=== PATIENT | male | born 1985 | race African-American/Black ===

== ENCOUNTER 2016-07-30 02:17 | Observation (INO) | payer OTHER ==
[~2016-07-30] VITALS: Ht 190.5 cm; Wt 155.0 kg
[~2016-07-30 02:17] MED LIST: CEPH500C3 PO; IBUP800T23 PO
[2016-07-30 02:20] VITALS: BP 169/102; PULSE 115; RESP 18; TEMP 98.3; O2SAT 96
[2016-07-30 02:28] VITALS: BP 141/81; PULSE 105; RESP 18; TEMP 99; O2SAT 97
[2016-07-30] MEDS ORDERED: ANTIDEPRESSANT (02:31)
[2016-07-30 02:43] LABS: BASOPHIL # 0.1 TH/MM3 (0-0.2); BASOPHIL % 0.8 % (0.0-2.0); EOSINOPHIL # 0.1 TH/MM3 (0-0.4); EOSINOPHIL % 0.7 % (0.0-4.0); HEMATOCRIT 40.9 % (39.0-51.0); HEMO FLAGS DIFF FINAL; LYMPH % 27.2 % (9.0-44.0); LYMPHOCYTE # 2.2 TH/MM3 (1.0-4.8); MEAN CELL VOLUME 82.4 FL (80.0-100.0); MEAN CORPUSCULAR HEMOGLOBIN 27.1 PG (27.0-34.0); MEAN CORPUSCULAR HGB CONC 32.9 % (32.0-36.0); MONO % 8.6 % (0.0-8.0); NEUT % 62.7 % (16.0-70.0); PLATELET COUNT 272 TH/MM3 (150-450); RED BLOOD COUNT 4.96 MIL/MM3 (4.50-5.90); RED CELL DISTRIBUTION WIDTH 14.2 % (11.6-17.2)
--- NOTE | 2016-07-30 02:49 | PD ---
HPI Chief Complaint: Chest Pain Time Seen by Provider: 02:46 Travel History International Travel<30 days: No Contact w/Intl Traveler<30days: No Traveled to known affect area: No History of Present Illness HPI 30-year-old male with history of cocaine use, presents to the ER today because of chest pain that started several hours ago on its own. Currently the chest pain is 6 out of 10 with no nausea, shortness of breath, or other symptoms. He states he has been using cocaine all afternoon. Modifying Factors: None Associated Signs & Symptoms: Chest pain Risk Factors: Cocaine use PFSH Past Medical History Anxiety: Yes Depression: Yes Tetanus Vaccination: < 5 Years Influenza Vaccination: No Past Surgical History Other Surgery: Yes (KNEE SURGERY) Social History Alcohol Use: Yes (OCC) Tobacco Use: Yes Substance Use: Yes (COCAINE, MARIJUANA) Allergies-Medications (Allergen,Severity, Reaction): Coded Allergies: No Known Allergies (Unverified , 07/30/16) Reported Meds & Prescriptions Reported Meds & Active Scripts Active Reported [Antidepressant] Review of Systems Except as stated in HPI: all other systems reviewed are Neg Physical Exam Narrative GENERAL: Well-nourished, well-developed young -[place] male patient in no acute distress. SKIN: Warm and dry. HEAD: Normocephalic. EYES: No scleral icterus. No injection or drainage. NECK: Supple, trachea midline. CARDIOVASCULAR: Regular rate and rhythm without murmurs, gallops, or rubs. RESPIRATORY: Breath sounds equal bilaterally. No accessory muscle use. GASTROINTESTINAL: Abdomen soft, non-tender, nondistended. MUSCULOSKELETAL: No cyanosis, or edema. BACK: Nontender without obvious deformity. No CVA tenderness. Data Data Last Documented VS Vital Signs Date Time Temp Pulse Resp B/P Pulse Ox O2 Delivery O2 Flow Rate FiO2 07/30/16 02:28 99.0 105 18 141/81 97 07/30/16 02:20 Room Air Orders Complete Blood Count With Diff (07/30/16 02:30) Comprehensive Metabolic Panel (07/30/16 02:30) Troponin I (07/30/16 02:30) Ckmb (Isoenzyme) Profile (07/30/16 02:30) Drug Screen, Random Urine (07/30/16 02:30) Electrocardiogram (07/30/16 ) Chest, Single Ap (07/30/16 02:47) Aspirin (Aspirin) (07/30/16 03:00) Nitroglycerin 2% Oint (Nitroglycerin 2% (07/30/16 03:00) CKMB (07/30/16 02:25) CKMB% (07/30/16 02:25) Labs Laboratory Tests Test 07/30/16 02:25 White Blood Count 8.0 TH/MM3 Red Blood Count 4.96 MIL/MM3 Hemoglobin 13.4 GM/DL Hematocrit 40.9 % Mean Corpuscular Volume 82.4 FL Mean Corpuscular Hemoglobin 27.1 PG Mean Corpuscular Hemoglobin 32.9 % Concent Red Cell Distribution Width 14.2 % Platelet Count 272 TH/MM3 Mean Platelet Volume 8.8 FL Neutrophils (%) (Auto) 62.7 % Lymphocytes (%) (Auto) 27.2 % Monocytes (%) (Auto) 8.6 % Eosinophils (%) (Auto) 0.7 % Basophils (%) (Auto) 0.8 % Neutrophils # (Auto) 5.0 TH/MM3 Lymphocytes # (Auto) 2.2 TH/MM3 Monocytes # (Auto) 0.7 TH/MM3 Eosinophils # (Auto) 0.1 TH/MM3 Basophils # (Auto) 0.1 TH/MM3 CBC Comment DIFF FINAL Differential Comment Sodium Level 139 MEQ/L Potassium Level 3.9 MEQ/L Chloride Level 103 MEQ/L Carbon Dioxide Level 26.6 MEQ/L Anion Gap 9 MEQ/L Blood Urea Nitrogen 7 MG/DL Creatinine 1.16 MG/DL Estimat Glomerular Filtration 91 ML/MIN Rate Random Glucose 95 MG/DL Calcium Level 8.6 MG/DL Total Bilirubin 0.3 MG/DL Aspartate Amino Transf 23 U/L (AST/SGOT) Alanine Aminotransferase 22 U/L (ALT/SGPT) Alkaline Phosphatase 54 U/L Total Creatine Kinase 340 U/L Troponin I LESS THAN 0.02 NG/ML Total Protein 7.9 GM/DL Albumin 4.0 GM/DL MDM Medical Decision Making Medical Screen Exam Complete: Yes Emergency Medical Condition: Yes Medical Record Reviewed: Yes Interpretation(s) EKG shows sinus tachycardia rate of 100 bpm, no ST elevation or depression, and no arrhythmias. No significant T-wave inversions. Laboratory Tests Test 07/30/16 02:25 Monocytes (%) (Auto) 8.6 % (0.0-8.0) Total Creatine Kinase 340 U/L (39-308) Troponin I LESS THAN 0.02 NG/ML (0.02-0.05) Differential Diagnosis Chest pain, cocaine usecocaine related chest pain versus dysrhythmias versus ACS Narrative Course Lab work and chest x-ray did not indicate any signs of acute processes. EKG did not show significant ST changes. Patient was given aspirin and nitroglycerin in the ER with some improvement symptoms. At this point, my plan would be to admit the patient for further evaluation a chest pain. Diagnosis Primary Impression: CHEST PAIN, UNSPECIFIED Admitting Information Admitting Physician Requests: Admit Marquis Vásquez MD Jul 30, 2016 02:49
[2016-07-30 03:00] VITALS: BP 133/74; PULSE 84; RESP 16; O2SAT 95
[2016-07-30] MEDS ORDERED: NITROGLYCERIN 2% OINT 1 GM PACKET TOPICAL ONE (03:00)
[2016-07-30] MEDS ORDERED: ASPIRIN 325 MG TAB PO ONE (03:00)
[2016-07-30 03:17] LABS: ALKALINE PHOSPHATASE 54 U/L (45-117); ALT (GPT) 22 U/L (12-78); ANION GAP 9 MEQ/L (5-15); AST (GOT) 23 U/L (15-37); BICARBONATE 26.6 MEQ/L (21.0-32.0); BLOOD UREA NITROGEN 7 MG/DL (7-18); CHLORIDE 103 MEQ/L (98-107); CREATINE KINASE 340 U/L (39-308); GLOMERULAR FILTRATION RATE 91 ML/MIN (>89); POTASSIUM 3.9 MEQ/L (3.5-5.1); SODIUM (NA) 139 MEQ/L (136-145); TOTAL BILIRUBIN ADULT 0.3 MG/DL (0.2-1.0)
[2016-07-30 03:29] LABS: CKMB 1.5 NG/ML (0.5-3.6)
[2016-07-30] MEDS ORDERED: SODIUM CHLORIDE 0.9% FLUSH 5 ML FLUSH IVF PRN (03:30)
[2016-07-30 04:00] VITALS: BP 128/65; PULSE 90; O2SAT 97
--- NOTE | 2016-07-30 04:52 | RADRPT ---
EXAM DATE/TIME: 07/30/2016 02:58 [facility] COMPARISON: No previous studies available for comparison. INDICATIONS : Chest pain. MEDICAL HISTORY : None. SURGICAL HISTORY : None. ENCOUNTER: Initial ACUITY: 1 day PAIN SCORE: 6/10 LOCATION: Bilateral chest FINDINGS: A single view of the chest demonstrates the lungs to be symmetrically aerated without evidence of mas s, infiltrate or effusion. The cardiomediastinal contours are unremarkable. Osseous structures are intact. CONCLUSION: No acute disease. Chinedu Green MD on July 30, 2016 at 4:50 Board Certified Radiologist. This report was verified electronically.
[2016-07-30] MEDS ORDERED: SODIUM CHLORIDE 0.9% FLUSH 5 ML FLUSH IVF SCH (09:00)
--- NOTE | 2016-07-30 19:24 | EKG ---
Date Performed: 07/30/2016 Time Performed: 02:28:09 PTAGE: 30 years EKG: SINUS TACHYCARDIA ABNORMAL RHYTHM ECG NO PREVIOUS TRACING DOCTOR: Danie Bhat Interpretating Date/Time 07/30/2016 19:20:23
== END 2016-07-30 04:59 | disposition left against medical advice (07) ==
LOC: NEPC 02:17 → NEDA 03:28
PROVIDERS: ADMIT Family Medicine; ATTEND Family Medicine
DX: R07.9 Chest pain, unspecified (principal); F14.90 Cocaine use, unspecified, uncomplicated; R94.31 Abnormal electrocardiogram [ECG] [EKG]; Z72.0 Tobacco use
CPT/HCPCS: 71010; 80053; 82550; 82552; 84484; 85025; 93005; 99285; G0378